=== PATIENT | male | born 1935 | race Caucasian/White ===

== ENCOUNTER 2024-12-04 23:51 | Inpatient (IN) | payer OTHER ==
[~2024-12-04] VITALS: Ht 185.4 cm; Wt 63.7 kg
[2024-12-05] VITALS (57 sets, daily range): BP systolic 74–109; BP diastolic 25–75; PULSE 61–140; RESP 7–33; TEMP 95.1–97.8; O2SAT 77–100
[2024-12-05] MEDS ORDERED: ACETAMINOPHEN 325 MG TAB PO PRN (02:00)
[2024-12-05] MEDS ORDERED: NITROGLYCERIN 0.4 MG SL TAB SL PRN (02:00)
[2024-12-05] MEDS ORDERED: MORPHINE SULFATE INJ 2 MG/ml SYRG IV PRN ×2 (02:00)
[2024-12-05] MEDS ORDERED: ONDANSETRON HCL 4 MG/2 ML VIAL IV PRN (02:00)
[2024-12-05] MEDS ORDERED: SODIUM CHLORIDE 0.9% 1,000 ML IV SCH (02:00)
[2024-12-05] MEDS: methylPREDNISolone SOD SUCC 125 MG/2 ML VL IV ONE (02:15)
[2024-12-05] MEDS ORDERED: VANCOMYCIN PER PHARMACY 0 MG IV SCH (02:15)
[2024-12-05] MEDS: PANTOPRAZOLE 40 MG/10 ML VIAL INJ IV ONE (02:15)
[2024-12-05] MEDS: ATORVASTATIN 20 MG TAB PO ONE (02:30)
--- NOTE | 2024-12-05 02:41 | DVHHPRES ---
History of Present Illness Resident Creating Document: WESLY FIGUEROA RESIDENT History of Present Illness Mr. Florentino, a 89-year-old gentleman with no known past medical history, poor medical follow up, was noted to be losing unintentional weight loss, patient has become confused and agitated, when the neighbors called brother who lives in [facility] visited him and found that he has altered level of consciousness, took the patient to directly to [facility] for further evaluation. Patient mentions he does not take any home medications and did not follow up with the primary care physician in longest time. He is living by himself for last 25 years, and overall in past 6 months has lost 30 lb of w eight, does not have other means of support, limited family support, at this point not able to maintain ADLs by himself, used to move with cane and walker but lately feeling exhausted and overall weak and increasing loss of appetite. But the patient denies any aspiration, sick contact, pain, change in mentation or any fall. Patient was found to have new onset of atrial flutter and possible COPD exacerbation with wheezing and acute hypoxic respiratory failure Complicated with type [address] and chest x-ray was unremarkable and with IV fluid and ceftriaxone, patient is more hemodynamically stable, with AAO x4, post recovery in the ER from [facility] transferred to the [facility] for further care. Patient was admitted in telemetry floor, under the care of Dr. Lawler. Past Medical History Patient denies any known previous medical history. Past Surgical History Patient denies any past significant surgical history, head to toe physical examination does not reveal any surgical scar. Family History: None, Other (Noncontributory, patient does not have a clear memory of family history relevant to this hospitalization.) Smoke: # pack years (Past 30 pack-year smoking history, quit in late 1960s, distant nicotine abuse history.) Occupation: Patient lives at home by him ALCOHOL: none Drugs: None Lives: Alone (Patient has a neighbor who keeps an eye on the patient. Close by family relatives are not very well connected. Closest family member brother lives in [facility].) Domestic Violence: Neg Review of Systems Constitutional: Yes: Weakness, Malaise; No: Fever, Chills, Sweats, Other Eyes: No: Pain, Vision change, Conjunctivae inflammation, Eyelid inflammation, Other, Redness ENT: No: Ear pain, Ear discharge, Nose pain, Nose discharge, Nose congestion, Mouth pain, Mouth swelling, Throat pain, Throat swelling, Other Respiratory: Cough, Dry, SOB with excertion; No: Shortness of breath, Wheezing, Hemoptysis, Pleuritic Pain, Sputum, Wheezing, Other Cardiovascular: No: Chest Pain, Palpitations, Orthopnea, Paroxysmal Noc. Dyspnea, Edema, Lt Headedness, Other Gastrointestinal: Other (Over past 1 year patient feels increasing distress to food, loss of appetite, but denies any abdominal pain, nausea, vomiting, GI bleed or melena.); No: Nausea, Vomiting, Abdominal Pain, Diarrhea, Constipation, Melena, Hematochezia Genitourinary: No Dysuria; Frequency, Incontinence (Recent, although not entirely sure.); No Hematuria, No Retention, No Other Musculoskeletal: No: other, neck pain, shoulder pain, arm pain, back pain, hand pain, leg pain, foot pain Skin: No: Rash, Lesions, Jaundice, Bruising, Other Neurological: Incoordination, Confusion; No: Weakness, Numbness, Change in speech, Seizures, Other Allergies: Coded Allergies: NO KNOWN ALLERGIES (Unverified , 12/05/24) Medications Current Medications Medications Dose Ordered Sig/Juan Pablo Route Start Time Stop Time Status Last Admin Dose Admin Sodium Chloride 1,000 ml @ 60 mls/hr [id number] IV 12/05/24 02:00 UNV Ondansetron HCl 4 mg Q4HP PRN IV 12/05/24 02:00 UNV Acetaminophen 650 mg Q6HP PRN PO 12/05/24 02:00 UNV Morphine Sulfate 2 mg Q4HPRN PRN IV 12/05/24 02:00 UNV Nitroglycerin 0.4 mg Q5MINP PRN SL 12/05/24 02:00 UNV Morphine Sulfate 2 mg Q30M PRN IV 12/05/24 02:00 UNV Vancomycin HCl 0 ml @ 0 mls/hr UD IV 12/05/24 02:15 UNV Cefepime HCl 50 ml @ 12.5 mls/hr Q12HR IV 12/05/24 10:00 UNV Pantoprazole Sodium 40 mg DAILY IV 12/05/24 10:00 UNV Methylprednisolone Sodium Succinate 60 mg Q8HR IV 12/05/24 06:00 UNV Levalbuterol HCl 0.625 mg Q6HWA NEB 12/05/24 06:00 UNV Ipratropium [place] 0.5 mg Q6HWA NEB 12/05/24 06:00 UNV Atorvastatin Calcium 40 mg HS PO 12/05/24 22:00 UNV Exam Vital Signs Vital Signs Date Time Temp Pulse Resp B/P (MAP) Pulse Ox O2 Delivery O2 Flow Rate FiO2 12/05/24 01:30 96.9 63 12 88/67 (74) 78 96.9 General Appearance: Alert, Oriented X3, Cooperative, No acute distress HEENT: Atraumatic, PERRLA, EOMI, Other (Extremely dry mucous membrane, low turgor, bilateral conjunctival pallor, bilateral eye examination reveals favorable vision, status post bilateral cataract surgery.) Respiratory: Other (Bilateral crackles, right more than left, slow air movement, 4-5 L nasal cannula oxygen, likely atelectasis. At baseline patient uses no oxygen.) Cardiovascular: Regular rate, Normal S1, Normal S2, No murmurs, Other (Pulse bilateral regular.) Abdominal: Normal bowel sounds, Soft, No tenderness, No hepatospenomegaly, No masses, Other (No focal tender points noted) Extremities: No clubbing, No cyanosis, No edema, Normal pulses, No tenderness/swelling, Other (Extremely low muscle mass, malnutrition) Skin: No rashes, No significant lesion (At back patient has some scratches on the left scapular region. Lower sacral region mild blanching redness, no skin tear noted. No ulcer noted.) Neuro: Normal speech, Strength at 5/5 X4 ext (Upper and lower extremity equal 4/5 strength no focal neurological deficit), Normal tone, Sensation intact, Cranial nerves 3-12 NL, Reflexes 2+ (Surprisingly patient is AAO x4 with good recall of recent and past major events. Patient could depict the entire narrative coming from home to [place] and to the [facility] without memory lapses), Other (Gait testing deferred) Psych/Mental Status: Mental status NL, Mood NL, Other (Denies homicidal or suicidal ideation, although admits to fatigue) Labs/Xrays Noted labs from [facility], further labs in hospital sent. Although patient has CXR and noncontrast CT head, from recent hospitalization from prior day, after discussion with the Radiology Department not being able to upload. Detailed neurological examination ruled out any focal neurological deficit or memory lapses. Requested for upload to the lining feller in early a.m.. Repeat CXR, EKG noted with PVCs, patient is put on continuous pulse oximeter and telemetry monitoring at least overnight. Assessment/Plan Assessment/Plan # Altered level of consciousness: At presentation likely encephalopathy toxic versus metabolic: Underlying sepsis or uremia can be contributory, CT head was -ve as per [facility], seizure precaution, fall precaution, PT, tomorrow close monitoring of electrolytes and labs, high-risk of delirium, delirium precautions to continue. NPO, aspiration precautions to continue till swallow eval. Check TSH, B12, detailed history for baseline mental state. # Presented with chief complaints of weakness, loss of appetite, fatigue, for past 2 weeks: brought by EMS to the [facility] for further evaluation. avoid benzodiazepines and Beers' criteria eligible drugs. Neurologic close monitoring, Q 2 vitals, delirium precaution, fall precautions to continue: Review CT head, CXR from previous hospitalization. Physical therapy evaluation tomorrow as needed social work support. Nutrition consult and high protein diet cont. # new onset of Atrial flutter: Recheck in the in-hospital EKG, based on available data, chads Vasc of 2. noted in presenting EKG, trend troponin, telemetry, echo, BNP to check. Keep the heart rate around 110, liberal blood pressure and heart rate control. Status post Cardizem, and aspirin loading 325. PVC, no ST-T elevation, if heart rate increases we will consider 25mg metoprolol succinate. Eliquis 2.5 bid started. # Starvation ketosis, likely due to poor p.o. intake, and nutrition: IV fluid replenishment to continue, high-risk of refeeding syndrome check electrolytes and replenish. # possible UTI with leukocyte esterase: Pending urine culture, blood culture, s/p IV ceftriaxone at [place] still hypotensive, hemodynamically unstable, broad antibiotics with both Gram-positive and g negatives coverage. # Sepsis, severe, with lactic acidosis: likely due to underlying UTI, lactate 2.3, repeat lactate, IV fluid to continue, close monitoring for fluid overload state. One set of blood culture and urine culture has been sent from [facility] , keep a map over 65. blood culture, urine culture to recent and follow cover broadly both Gram-positive and g negatives. For hypothermia, warm blanket. # moderate Dehydration: Due to poor oral intake, sepsis, indicative of intravascular fluid depletion, hyaline cast in urinalysis, mucosa dry. IV hydration continue, sepsis dose IV fluids given, recheck lactate. # ?COPD exacerbation: Negative workup for influenza, RSV, COVID less likely viral URI induced. Sputum culture, blood culture to continue, continue treatment with IV steroid and nebs. Ruled out CHF with echo. # acute hypoxic respiratory failure: Patient on 3-4 L of nasal cannula oxygen, baseline does not use any oxygen at home. Denies cardiac chest pain, sick contact dry cough, dyspnea on exertion and exertional chest pain. Workup as above to follow # possible aspiration pneumonia/and/or community-acquired pneumonia with Gram- positive Gram-negative: In the background of extreme dehydration it can not be completely ruled out, interval chest x-ray after adequate hydration to continue, sputum culture pending. # STEPHANE due to VMN: Likely prerenal, IV hydration, avoid nephrotoxic, gentle hydration, trend renal function, U/S renal. # Moderate to severe protein energy malnutrition: Total albumin 2.9,, total protein lower, low muscle mass, advanced age, to rule out underlying malnutrition, advanced age, dementia?. Limited history available at the time of admission. Further history from the caregivers to obtain. 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 avoid nephrotoxins, gentle hydration, check UA, her ultrasound on renal function, look for any postobstructive disease, prostate and urinary retention. # possible hepatic dysfunction: Pending CMP/hepatic panel Mild elevated INR 1.2, Hypoalbuminemia 2.2, RUQ U/S check, physical exam abdominal unremarkable. Check home medications, started on statin hold if altered hepatic function. # acute thrombocytopenia: CBC shows in 80s, no active bleeding noted. Could be due to sepsis, multifactorial, age-related, avoid heparin /heparin containing medications. close follow up, avoid aspirin, NSAIDs, antiplatelets and thrombolytics. Stool occult blood to note check. # History of anxiety: We will try to avoid benzodiazepine containing medications, # unintentional weight loss: As per peripheral history patient has 30 lb of unintentional weight loss over last few months, possible underlying malnutrition, malignancy including GI malignancy/ prostate cancer: Common workup to continue.Overall poor prognosis with multisystem disease and poor [facility] follow up. When patient's kidney functions improve might benefit from a workup with CT chest and abdomen scouting with IV contrast to rule out any malignancy. # CXR revealed bilateral interstitial scars right greater than left possible underlying lung fibrosis: Underlying COPD could be contributory keep the SpO2 around 92%. When patient is more awake alert start incentive spirometry till then aspiration precautions continue. # Occasional PVCs noted in previous hospitalization: Check for magnesium , magnesium more than 2, potassium more than 4. Close monitoring of electrolytes and correction. # hypotension: likely due to severe, status post IV fluid sepsis dose given with NaCL, the patient improved, keep a map over 65. IV steroid, TSH and a.m. cortisol to check. # GI prophylaxis: With IV pantoprazole daily. Look for any GI side effects. Presumably denies any watery diarrhea or high-risk of C diff. patient on broad- spectrum antibiotics abdominal examination unremarkable. # distant history of 30 pack-year smoking: Patient quit in late 1960s. No previously known malignancy history. At home not on oxygen or rescue inhalers. # unable to maintain ADLs: Steep decline over past 6 months. Lives by himself, not able to obtain diet and fluid, declining overall health, advanced age, poor nutrition, unintentional weight loss concerning for undetected malignancy. High-risk of fall and complication at discharge. Patient is not confident about maintaining balance. PT eval pending, sw evaluation for safe and advanced discharge planning. PCP: Did not follow up with PCP in recent times as per patient. Specialist Relevant To Admission: NA, patient can not tell when the last time had any GI workup, colonoscopy etc. lives by himself and extremely poor historian. Case discussed with Dr. Lawler. Code Status: Full Code. Goals of care and care plan discussion needed total 39 minutes bedside. Patient is agreeable to the hospitalization under telemetry floor. Plan discussed with: Patient, Other (discussed over phone with brother. ) My Orders Orders - WESLY FIGUEROA RESIDENT Procedure Category Date Status Time Admit ADMIT 12/05/24 Transmitted 01:48 Allergies KAMALJIT 12/05/24 In Process 01:48 Code Status CODE 12/05/24 Transmitted 01:48 Sodium Chloride 0.9% PHA 12/05/24 Logged 02:00 Oxygen Per Hour RT 12/05/24 Transmitted 01:48 Ondansetron Hcl PHA 12/05/24 Logged (Zofran) 02:00 Fall Risk Precautions KAMALJIT 12/05/[address] 01:48 Complete Blood Count LAB 12/06/24 Verified 04:00 Comprehensive LAB 12/06/24 Verified Metabolic Panel 04:00 Npo (Nothing By DIET 12/05/24 Transmitted Mouth) Diet Breakfast Pt Request For Service PT 12/05/24 Logged 01:48 * Swallow Request ST 12/05/24 Transmitted 01:48 Echo 2d Mode Cardiac US 12/05/24 Logged DOP 01:48 Condition: Serious KAMALJIT 12/05/24 In Process 01:48 Acetaminophen Tablet PHA 12/05/24 Logged (Tylenol Tablet) 02:00 Morphine Sulfate PHA 12/05/24 Logged Injection 02:00 Sequential KAMALJIT 12/05/24 In Process Compression Device Nitroglycerin PHA 12/05/24 Logged Sublingual (Ntrostat 02:00 Morphine Sulfate PHA 12/05/24 Logged Injection 02:00 Oxygen By Nasal RT 12/05/24 Transmitted Cannula 01:48 Stat Ekg For Chest KAMALJIT 12/05/24 In Process Pain 01:48 Notify Of Changes KAMALJIT 12/05/24 In Process From Base 01:48 Kennel Aide For KAMALJIT 12/05/24 In Process 24 Hours 01:48 Emergency Dysrhythmia KAMALJIT 12/05/24 In Process Protocol 01:48 Rhythm Strips Once KAMALJIT 12/05/24 In Process Every Shift 01:48 Vancomycin Per PHA 12/05/24 Logged Pharmacy 02:15 Cefepime 1gm/ 50ml PHA 12/05/24 Logged (Maxipime 1gm/50ml) 10:00 Urine Bacterial LUKE 12/05/24 Uncollected Culture 02:11 Blood Culture LUKE 12/05/24 Uncollected 02:11 Lactic Acid W/ Reflex LAB 12/05/24 Logged Order 02:11 Thyroid Stimulating LAB 12/05/24 Logged Hormone 02:12 Cortisol Am LAB 12/05/24 Logged 02:12 Methylprednisolone PHA 12/05/24 Logged Sod Succ (Solu Medrol 02:15 B-Type Natriuretic LAB 12/05/24 Logged Peptide 02:13 Pantoprazole PHA 12/05/24 Logged (Protonix) 02:15 Pantoprazole PHA 12/05/24 Logged (Protonix) 10:00 Methylprednisolone PHA 12/05/24 Logged Sod Succ (Solu Medrol 06:00 Levalbuterol Hcl PHA 12/05/24 Logged (Xopenex Medneb) 06:00 Ipratropium Medneb PHA 12/05/24 Logged (Atrovent Medneb) 06:00 Respiratory Culture LUKE 12/05/24 Logged W/ Gs 02:18 Strict Aspiration KAMALJIT 12/05/24 In Process Precautions 02:18 Seizure Precautions KAMALJIT 12/05/[address] 02:18 Fall Risk Precautions KAMALJIT 12/05/[address] 02:18 Fall Precautions KAMALJIT 12/05/24 In Process Initiated 02:18 Kidney US 12/05/24 Logged 02:19 Lipase LAB 12/05/24 Logged 02:19 Troponin-I Hs LAB 12/05/24 Logged 02:19 Troponin-I Hs LAB 12/05/24 Logged 03:19 Troponin-I Hs LAB 12/05/24 Logged 05:19 Atorvastatin (Lipitor) PHA 12/05/24 Logged 02:30 Atorvastatin (Lipitor) PHA 12/05/24 Logged 22:00 Communication Order ORDERS 12/05/24 Transmitted 02:22 Comprehensive LAB 12/05/24 Logged Metabolic Panel 04:00 Complete Blood Count LAB 12/05/24 Logged 04:00 Date of Service: Dec 05, 2024 Billing Provider: DUDLEY LAWLER MD Common Visit Codes: 90568-LKAPFKH INP/OBS CARE (HIGH) Secondary Visit Codes: 89958-[id number] CARE PLAN 30 MINUTES WESLY FIGUEROA RESIDENT Dec 05, 2024 02:41
[2024-12-05 03:12] LABS: Basophils # (auto) 0 10 ^3/uL (0-0.2); Basophils % (auto) 0.4 % (0.0-2.0); Eosinophils # (auto) 0 10 ^3/uL (0-0.8); Eosinophils % (auto) 0.4 % (0.0-7.0); Hemoglobin 17.1 g/dL (13.5-17.5); Lymphocytes # (auto) 0.5 10 ^3/uL (0.4-5.4); Lymphocytes % (auto) 9.8 % (10.0-50.0); Mean Corpuscular Hemoglobin 30.2 pg (28.0-32.0); Mean Corpuscular Volume 91.7 fL (80.0-100.0); Monocytes # (auto) 0.3 10 ^3/uL (0-1.3); Monocytes % (auto) 6.2 % (0.0-12.0); Neutrophils # (auto) 4.6 10 ^3/uL (1.6-8.6); Neutrophils % (auto) 83.2 % (37.0-80.0); Nucleated Red Blood Cells % 0.2 %; Platelet Count (auto) 110 10^3/uL (140-450); Red Blood Cells 5.67 10^6/uL (4.5-5.90); Red Cell Distribution Width 19.4 % (11.8-14.3); White Blood Cell 5.5 10^3/uL (4.4-10.8)
[2024-12-05 03:27] LABS: Albumin 3.7 g/dL (3.2-4.8); Anion Gap 16 (5-15); BUN/Creatinine Ratio 24.1 (10.0-20.0); Calcium 8.9 mg/dL (8.7-10.4); Glucose 76 mg/dL (74-106); Lipase 39 U/L (12-53); Potassium 4.7 mmol/L (3.5-5.1); Sodium 143 mmol/L (136-145); Total Protein 6.4 g/dL (5.7-8.2)
[2024-12-05] MEDS: VANCOMYCIN 1.5GM/300ML 300 ML IV ONE ×2 (03:42→11:16)
[2024-12-05 03:48] LABS: Lactic Acid w/Reflex 3.2 mmol/L (0.4-2.0)
[2024-12-05] MEDS: SODIUM CHLORIDE 0.9% 1,000 ML IV SCH (03:53)
[2024-12-05 03:55] LABS: Alanine Aminotransferase 43 U/L (7-40); Alkaline Phosphatase 116 U/L (46-116); Aspartate Aminotransferase 72 U/L (<34); Bilirubin, Total 2.4 mg/dL (0.2-1.0); Blood Urea Nitrogen 42 mg/dL (9-23); Carbon Dioxide 19 mmol/L (20-31); Chloride 108 mmol/L (98-107)
[2024-12-05] MEDS: methylPREDNISolone SOD SUCC 125 MG/2 ML VL IV SCH (05:06)
--- NOTE | 2024-12-05 06:37 | DVH ---
EXAM: XR Chest, 1 View CLINICAL INDICATION: Rule out pneumonia after rehydration TECHNIQUE: Frontal view of the chest. COMPARISON: No relevant prior studies available. FINDINGS: LUNGS AND PLEURAL SPACES: See below. HEART: Cardiomegaly with mild congestion. MEDIASTINUM: Unremarkable. Normal mediastinal contour. BONES/JOINTS: Unremarkable. No acute fracture. OTHER FINDINGS: Comparison None. . . IMPRESSION: Cardiomegaly with mild congestion. HS:Y
[2024-12-05] MEDS: LEVALBUTEROL HCL 1.25 MG/3 ML NEB NEB SCH (06:59)
[2024-12-05] MEDS: IPRATROPIUM BROM 0.5 MG/2.5ML INH SOL NEB SCH (06:59)
[2024-12-05] MEDS ORDERED: FUROSEMIDE 20 MG/2 ML VIAL IV ONE (07:45)
[2024-12-05 08:24] LABS: Free T3 2.14 pg/mL (2.3-4.2); Free T4 (Free Thyroxine) 1.9 ng/dL (0.89-1.76)
[2024-12-05] MEDS: PANTOPRAZOLE 40 MG/10 ML VIAL INJ IV SCH (09:02)
[2024-12-05] MEDS: CEFEPIME 1GM/ 50ML 50 ML IV SCH (09:02)
[2024-12-05] MEDS: APIXABAN 2.5 MG TAB PO SCH (09:02)
[2024-12-05] MEDS: Ensure HIGH Protein Chocolate 8oz Bottle PO SCH (09:17)
--- NOTE | 2024-12-05 09:30 | DVH ---
Bilateral lower extremity venous duplex Clinical History: Immobility, noted leg swelling. Comparison: None Technique: Duplex Doppler evaluation of the deep venous systems of both lower extremities from the common femora l veins to the popliteal veins including color Doppler and spectral/pulsed waveform analysis was perf ormed. Findings: RIGHT SIDE: The common femoral vein demonstrates appropriate compressibility and waveform variability. There is compressibility/patency of the great saphenous vein at the proximal thigh. The femoral vein demonstrates appropriate compressibility and waveform variability. The deep femoral vein demonstrates appropriate compressibility and waveform variability. The popliteal vein demonstrates appropriate compressibility and waveform variability. There is normal compressibility at the tibioperoneal trunk. LEFT SIDE: The common femoral vein demonstrates appropriate compressibility and waveform variability. There is compressibility/patency of the great saphenous vein at the proximal thigh. Chronic dvt left SFV The deep femoral vein demonstrates appropriate compressibility and waveform variability. The popliteal vein demonstrates appropriate compressibility and waveform variability. There is normal compressibility at the tibioperoneal trunk. Impression: No right femoropopliteal venous thrombosis. Chronic dvt left SFV, popliteal vein, posterior tibial vein
--- NOTE | 2024-12-05 09:30 | DVH ---
INDICATION: Rule out obstruction. Ureter, bladder and b/l kidney TECHNIQUE: Multiple real-time sonographic images of the kidneys and bladder were obtained. COMPARISON: None FINDINGS: The right kidney measures 8 cm in length, which is normal in size. There is normal echogeni [place] of the right kidney. No hydronephrosis. The left kidney measures 9 cm in length, which is normal in size. There is normal echogenicity of the left kidney. No hydronephrosis. No large intraluminal masses are seen in the bladder. 5 cm right renal cyst. IMPRESSION: 1. Normal sonographic appearance of the kidneys. No hydronephrosis. 2. Small bilateral pleural effusions.
[2024-12-05] MEDS ORDERED: SODIUM CHLORIDE 0.9% 2,400 ML IV ONE (09:45)
--- NOTE | 2024-12-05 09:53 | DVH ---
INDICATION: Rule out hepatobiliary pathology TECHNIQUE: Multiple real-time sonographic images were obtained of the right upper quadrant. COMPARISON: None FINDINGS: The liver demonstrates increased echotexture without focal mass lesions. The liver measure s 12.5 cm. There is no intrahepatic or extrahepatic ductal dilatation. The common duct measures 0.3 cm. Gallbladder sludge is present. The gallbladder wall measures 0.3 cm and is within normal limits. Trac e pericholecystic fluid. Trace perihepatic ascites. The right kidney measures 8.0 cm. The right kidney is normal in contour, size, and shape. The echogen icity is normal. There is no hydronephrosis. Right upper pole cyst measures 4.2 cm. The pancreas is not well visualized due to overlying bowel gas. Small to moderate right pleural effusion. IMPRESSION: Small to moderate right pleural effusion. Trace perihepatic and trace pericholecystic fluid. Gallbladder sludge is present. Mild increased echogenicity of the liver may represent hepatic steatosis.
[2024-12-05] MEDS ORDERED: ASPirin 81 mg TAB PO SCH (10:00)
[2024-12-05] MEDS ORDERED: NOREPINEPHRINE 8 MG/250ML KIT 250 ML IV SCH (10:15)
[2024-12-05] MEDS: SODIUM CHLORIDE 0.9% 1,000 ML IV ONE (10:17)
[2024-12-05 11:07] LABS: Base Excess -10.1 mmol/L (-2.0-3.0)
--- NOTE | 2024-12-05 11:18 | DVHINCON2 ---
Date Seen: Dec 05, 2024 Referring Physician MD Johnathon Reason for Consultation Cardiogenic shock History of Present Illness This is an 89-year-old man transferred to our facility for continuation of care from [facility] for a chief complain of generalized weakness for two weeks. According to medical records from aforementioned facility the patient presented via EMS with a chief complaint of progressive generalized weakness associated with fatigue, decreased appetite, shortness of breath, and weight loss including >30 lbs. It appears his brother came to visit and found him not be heaviness his normal self prompting him to call 911. Upon EMS arrival he was noted to be A&O x4 and hypotensive with a blood pressure of 68/28 mmHg for which he was administered NS x 1L bolus with improved BP of 91/71 mmHg. He underwent a 12 lead electrocardiogram revealing an atrial tachycardia rhythm at 127 bpm with a associated PVCs. Records indicate the patient was also found with paroxysmal atrial fibrillation/atrial flutter with rapid ventricular rate and occasional PVCs. He underwent blood work an emergent testing revealing acute kidney injury, thrombocytopenia, pulmonary congestion, and negative influenza A&B/COVID-19. Per patient, he has not seen a PCP in many years. Significant medical history includes anxiety and remote history of tobacco use including 30 pack-years. Past Medical History Past medical history reviewed. No other significant than mentioned above. Past Surgical History Past surgical history reviewed. No other significant than mentioned above. Family History: FH: stomach cancer G8 MOTHER, Family History Family history reviewed. Social History Denies the use of illicit drugs, alcohol, or tobacco use. Admits to remote history of tobacco use including 30 pack-years. Allergies: Coded Allergies: NO KNOWN ALLERGIES (Unverified , 12/05/24) Home Meds No Active Prescriptions or Reported Meds Home Meds There are no active home medications. Current Medications Air Current Medications Medications (Trade) Dose Ordered Sig/Juan Pablo Route PRN Reason Start Time Stop Time Status Last Admin Sodium Chloride 1,000 ml @ 60 mls/hr [id number] IV 12/05/24 02:00 12/05/24 03:37 DC Ondansetron HCl (Zofran) 4 mg Q4HP PRN IV NAUSEA / VOMITING 12/05/24 02:00 12/05/24 09:00 DC Acetaminophen (Tylenol Tablet) 650 mg Q6HP PRN PO PAIN SCALE 1-3 OR TEMP>100.4 12/05/24 02:00 12/05/24 07:39 DC Morphine Sulfate 2 mg Q4HPRN PRN IV SEVERE PAIN (7-10 PAIN SCALE) 12/05/24 02:00 12/05/24 09:00 DC Nitroglycerin (Ntrostat Sublingual) 0.4 mg Q5MINP PRN SL FOR CHEST PAIN 12/05/24 02:00 12/05/24 09:00 DC Morphine Sulfate 2 mg Q30M PRN IV FOR CHEST PAIN 12/05/24 02:00 12/05/24 09:00 DC Vancomycin HCl 0 ml @ 0 mls/hr UD IV 12/05/24 02:15 Cefepime HCl 50 ml @ 12.5 mls/hr Q12HR IV 12/05/24 10:00 12/05/24 09:02 Pantoprazole Sodium (Protonix) 40 mg DAILY IV 12/05/24 10:00 12/05/24 09:02 Methylprednisolone Sodium Succinate (Solu Medrol) 60 mg Q8HR IV 12/05/24 06:00 12/05/24 05:06 Levalbuterol HCl (Xopenex Medneb) 0.625 mg Q6HWA [facility] 12/05/24 06:00 12/05/24 06:59 Ipratropium [place] (Atrovent Medneb) 0.5 mg Q6HWA [facility] 12/05/24 06:00 12/05/24 06:59 Atorvastatin Calcium (Lipitor) 40 mg HS PO 12/05/24 22:00 Sodium Chloride 1,000 ml @ 75 mls/hr [id number] IV 12/05/24 03:45 12/05/24 07:31 DC 12/05/24 03:53 Enteral Nutritional Formula (Ensure High Protein) 240 ml TIDWM PO 12/05/24 08:00 12/05/24 09:17 Apixaban (Eliquis) 2.5 mg BID PO 12/05/24 10:00 12/05/24 09:02 Aspirin 81 mg DAILY PO 12/05/24 10:00 12/05/24 09:00 DC Norepinephrine Bitartrate 250 ml @ 3.75 mls/hr Q24H IV 12/05/24 10:15 12/05/24 10:59 DC Norepinephrine Bitartrate 250 ml @ 3.75 mls/hr Q24H IV 12/05/24 10:45 Dobutamine HCl/ Dextrose 250 ml @ 19.8 mls/hr [id number] IV 12/05/24 10:45 Review of Systems Constitutional: Generalized weakness, fatigue, weight loss, decreased appetite Ears, Nose, & Throat: No symptom reported Eyes: No symptom reported Neurological: No symptoms reported Pulmonary/Respiratory: SOB Cardiovascular: No symptom reported Gastrointestinal: No symptom reported Genitourinary: No symptom reported Musculoskeletal: No symptom reported Skin: No symptom reported Psychiatric: No symptom reported Endocrine: No symptom reported Hemotologic/Lymphatic: No symptom reported Vital Signs Vital Signs Date Time Temp Pulse Resp B/P (MAP) Pulse Ox O2 Delivery O2 Flow Rate FiO2 12/05/24 08:09 Nasal Cannula* 5 40 12/05/24 07:00 61 14 97 12/05/24 05:07 95.1 74/42 (53) 95.1 Physical Exam General Appearance: Cooperative. Lethargic. Elder. [id number] respiratory acute distress Head Exam: Normal inspection Neck Exam: Normal inspection. Non-tender. Normal alignment Pulmonary/Respiratory: Chest non-tender. Crackles to bilateral breath sounds Cardiovascular/Chest: Regular rate and rhythm. S1, S2. Paroxysmal Aflutter/AFib. No murmurs. + JVD. Peripheral Pulses: 2+ Radial (R). 2+ Radial (L). 1+ Pedal (R). 1+ Pedal (L) Abdominal Exam: Normal bowel sounds. Soft. Nontender. No hepatospenomegaly. No masses Ankle Exam: Negative ankle edema Lower extremities: Negative lower extremity edema Neuro/Mental Status: A&O x3. Coherent Thoughts/Psych: Normal thought pattern. Appropriate mood and affect. Appearance: In no acute distress Skin Exam: Normal inspection. Pale color. Warm. Dry Labs/Diagnostic Data Labs Test 12/05/24 11:00 12/05/24 08:24 12/05/24 05:44 12/05/24 02:38 Range/Units Blood Gas Specimen Type Arterial Blood Gas Sample Site Left radial Blood Gas Patient Temperature 37.0 Arterial Blood Date Drawn [id number] Arterial Blood pH 7.405 7.350-7.450 Arterial Blood Partial Pressure CO2 18.6 *L 35.0-48.0 mmHg Arterial Blood Partial Pressure O2 135.9 H 83.0-108.0 mmHg Arterial Blood HCO3 11.4 L 21.0-28.0 mmol/L Arterial Blood Oxygen Saturation 98.5 H 94.0-98.0 % Arterial Blood Base Excess -10.1 L -2.0-3.0 mmol/L Arterial Blood Oxyhemoglobin 97.7 94.0-98.0 % Arterial Blood Carboxyhemoglobin 0.3 L 0.5-1.5 % Arterial Blood Methemoglobin 0.5 0.0-1.5 % Ramos Test Yes Blood Gas Total Hemoglobin 16.80 13.5-17.5 g/dL Blood Gas Liter Flow 5.00 Blood Gas Modality Nasal cannula FiO2 % 40.0 Blood Gas Critical Value Read Back Yes Blood Gas Notified Whom ema Gallego Blood Gas Notified Time [id number] Blood Gas Notified By mary Melton Lactic Acid Level 3.3 *H 0.4-2.0 mmol/L Cortisol AM Sample 67.17 H 5.27-22.45 ug/dL Troponin I High Sensitivity 69 *H </=54 ng/L White Blood Count 5.5 4.4-10.8 10^3/uL Red Blood Count 5.67 4.5-5.90 10^6/uL Hemoglobin 17.1 13.5-17.5 g/dL Hematocrit 52.0 41.0-53.0 % Mean Corpuscular Volume 91.7 80.0-100.0 fL Mean Corpuscular Hemoglobin 30.2 28.0-32.0 pg Mean Corpuscular Hemoglobin Concent 33.0 32.0-36.0 g/dL Red Cell Distribution Width 19.4 H 11.8-14.3 % Platelet Count 110 L 140-450 10^3/uL Mean Platelet Volume 10.1 6.9-10.8 fL Neutrophils (%) (Auto) 83.2 H 37.0-80.0 % Lymphocytes (%) (Auto) 9.8 L 10.0-50.0 % Monocytes (%) (Auto) 6.2 0.0-12.0 % Eosinophils (%) (Auto) 0.4 0.0-7.0 % Basophils (%) (Auto) 0.4 0.0-2.0 % Neutrophils # (Auto) 4.6 1.6-8.6 10 ^3/uL Lymphocytes # (Auto) 0.5 0.4-5.4 10 ^3/uL Monocytes # (Auto) 0.3 0-1.3 10 ^3/uL Eosinophils # (Auto) 0 0-0.8 10 ^3/uL Basophils # (Auto) 0 0-0.2 10 ^3/uL Nucleated Red Blood Cells 0.2 % D-Dimer, Quantitative 4.87 H 0.0-0.49 mg/L FEU Sodium Level 143 136-145 mmol/L Potassium Level 4.7 3.5-5.1 mmol/L Chloride Level 108 H 98-107 mmol/L Carbon Dioxide Level 19 L 20-31 mmol/L Anion Gap 16 H 5-15 Blood Urea Nitrogen 42 H 9-23 mg/dL Creatinine 1.74 H 0.700-1.30 mg/dL Glomerular Filtration Rate Calc 37 >90 mL/min BUN/Creatinine Ratio 24.1 H 10.0-20.0 Serum Glucose 76 74-106 mg/dL Calcium Level 8.9 8.7-10.4 mg/dL Total Bilirubin 2.4 H 0.2-1.0 mg/dL Aspartate Amino Transferase (AST) 72 H <34 U/L Alanine Aminotransferase (ALT) 43 H 7-40 U/L Alkaline Phosphatase 116 46-116 U/L B-Type Natriuretic Peptide 2261.63 0-100 pg/mL Total Protein 6.4 5.7-8.2 g/dL Albumin 3.7 3.2-4.8 g/dL Lipase 39 12-53 U/L Vitamin B12 Level 1562 H 211-911 pg/mL Thyroid Stimulating Hormone (TSH) 8.35 H 0.55-4.78 uIU/mL Free Thyroxine (T4) Calculated 1.90 H 0.89-1.76 ng/dL Free Triiodothyronine (T3) pg/mL 2.14 L 2.3-4.2 pg/mL Assessment NSTEMI with cardiogenic shock (SCAI Shock Stage C) 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 Ramirez): * Transthoracic echocardiogram to evaluate cardiac function * Initiate milrinone drip for inotropic support and load on digoxin therapy * Initiate antiarrhythmic therapy, amiodarone drip per pharmacy protocol * Therapeutic Lovenox QD given borderline thrombocytopenia * [id number] Score 6 points. HAS-BLED Score 1 point * Preload reduction as tolerated, monitor renal function closely * Strict I&Os. Daily weight. Fluid restrictions * Monitor ECG changes closely and notify * Continuous CVP monitoring Case discussed in full detail with Dr. Ramirez. In the setting of deteriorating status the patient may qualify for a percutaneous ventricular assist device. Not a candidate for a cardiac catheterization at this time given clinical instability. Notify cardiology of any acute changes on clinical status. We will continue to monitor closely. Thank you for allowing us to participate in this patient's care. Please call if you have any questions or concerns. Critical care time: 60 min. This medical document was created using an electronic medical record system with voice recognition software and computerized dictation system. Although this document has been carefully reviewed, there might still be some phonetic and typographical errors. Occasional wrong-word or ``sound-alike substitutions may have occurred due to the inherent limitations of voice recognition software. These areas are purely typographical due to imperfections of the software programs and do not reflect any compromise in the patient's medical care. Please read the chart carefully and recognize, using context, where these substitutions have occurred. Plan discussed with: Patient, Other NYHA Physical activity limitations: Class4(Severe)discomfort (w any activit,symptoms at rest) Date of Service: Dec 05, 2024 Billing Provider: GEOVANNI MIRZA Cardiology Common Codes: 17360-TADBMTQT CARE 30-74 MIN GEOVANNI MIRZA Dec 05, 2024 11:18
[2024-12-05] MEDS: DOBUTamine 1000MCG/ML 250 ML IV SCH (11:44)
--- NOTE | 2024-12-05 12:15 | DVH ---
EXAM: XY CHEST PORTABLE Indication: central line placement Technique: Single frontal view of the chest was obtained Comparison: XY CHEST PORTABLE on DOS: 12/05/24 FINDINGS: Lines and Tubes: Right internal jugular central venous catheter tip projects over the superior vena c grant.. Lungs: Bilateral interstitial opacities. Pleura: Trace bilateral pleural effusions No pneumothorax. Cardiomediastinal contours: Cardiomegaly Bones: No acute osseous abnormality. IMPRESSION: Cardiomegaly with pulmonary edema and trace bilateral pleural effusions. Right internal jugular centr al venous catheter in appropriate position.
[2024-12-05] MEDS: NOREPINEPHRINE 8 MG/250ML KIT 250 ML IV SCH (12:37)
[2024-12-05] MEDS: FUROSEMIDE 100 MG/10ML VIAL IV ONE (12:48)
[2024-12-05] MEDS: AMIODARONE BOLUS KIT 100 ML IV ONE (12:49)
[2024-12-05 13:01] LABS: Magnesium 2.3 mg/dL (1.6-2.6)
[2024-12-05] MEDS: AMIODARONE 360mg/200mL PREMIX 200 ML IV ONE (13:01)
--- NOTE | 2024-12-05 13:13 | DVHPNRES ---
Progress Note Date Seen: Dec 05, 2024 Resident Creating Document: TOBIAS FREIRE RESIDENT Has the PT tested + for MRSA If YES, has PT been informed?: No Medical Necessity Reason Pt with a Central, PICC or Fol: No Subjective Review of Systems Mr. Florentino, a 89-year-old gentleman with no known past medical history, poor medical follow up, was noted to be losing unintentional weight loss, patient has become confused and agitated, when the neighbors called brother who lives in [facility] visited him and found that he has altered level of consciousness, took the patient to directly to [facility] for further evaluation. Patient mentions he does not take any home medications and did not follow up with the primary care physician in longest time. He is living by himself for last 25 years, and overall in past 6 months has lost 30 lb of weight, does not have other means of support, limited family support, at this point not able to maintain ADLs by himself, used to move with cane and walker but lately feeling exhausted and overall weak and increasing loss of appetite. But the patient denies any aspiration, sick contact, pain, change in mentation or any fall. Patient was found to have new onset of atrial flutter and possible COPD exacerbation with wheezing and acute hypoxic respiratory failure, with AAO x4, post recovery in the ER from [facility] transferred to the [facility] for further care. Patient was admitted in telemetry floor, Past Medical History Patient denies any known previous medical history. Past Surgical History Patient denies any past significant surgical history, head to toe physical examination does not reveal any surgical scar. Family History: None, Other (Noncontributory, patient does not have a clear memory of family history relevant to this hospitalization.) Smoke: # pack years (Past 30 pack-year smoking history, quit in late 1960s, distant nicotine abuse history.) Occupation: Patient lives at home by him ALCOHOL: none Drugs: None Lives: Alone (Patient has a neighbor who keeps an eye on the patient. Close by family relatives are not very well connected. Closest family member brother lives in [facility].) Domestic Violence: Neg 12/05/2024: xray : Cardiomegaly with pulmonary edema and trace bilateral pleural effusions, Chronic dvt left SFV, popliteal vein, posterior tibial vein, BP on the floor 80/60, leg raise test with no improvement, HR elevated with atrial flutter, 250 cc were given, but due to the possible concern of mixed shock (septic and cardiogenic), patient was transferred to ICU, CVC was placed. Patient is on cefepime + vancomycin, apixaban 2.5 mg BID and amiodarone drip. ABG: mixed disorder: metabolic acidosis and respiratory alkalosis, po2 is normal. We will continue monitoring Objective vital signs Vital Sign Date Time Temp Pulse Resp B/P (MAP) Pulse Ox O2 Delivery O2 Flow Rate FiO2 12/05/24 12:48 114/54 12/05/24 12:00 125 20 99 12/05/24 08:09 Nasal Cannula* 5 40 12/05/24 05:07 95.1 95.1 Total Intake and Output 12/04/24 12/04/24 12/05/24 15:00 23:00 07:00 Intake Total 400 ml Balance 400 ml medications Current Medications Medications Dose Ordered Sig/Juan Pablo Route Start Time Stop Time Status Last Admin Dose Admin Vancomycin HCl 0 ml @ 0 mls/hr UD IV 12/05/24 02:15 Cefepime HCl 50 ml @ 12.5 mls/hr Q12HR IV 12/05/24 10:00 12/05/24 09:02 12.5 MLS/HR Pantoprazole Sodium 40 mg DAILY IV 12/05/24 10:00 12/05/24 09:02 40 MG Methylprednisolone Sodium Succinate 60 mg Q8HR IV 12/05/24 06:00 12/05/24 05:06 60 MG Ipratropium [place] 0.5 mg Q6HWA [facility] 12/05/24 06:00 12/05/24 06:59 0.5 MG Atorvastatin Calcium 40 mg HS PO 12/05/24 22:00 Enteral Nutritional Formula 240 ml TIDWM PO 12/05/24 08:00 12/05/24 09:17 240 ML Apixaban 2.5 mg BID PO 12/05/24 10:00 12/05/24 09:02 2.5 MG Norepinephrine Bitartrate 250 ml @ 3.75 mls/hr Q24H IV 12/05/24 10:45 Dobutamine HCl/ Dextrose 250 ml @ 19.8 mls/hr [id number] IV 12/05/24 10:45 Examination General Appearance: Alert, Oriented X3, Cooperative, No acute distress HEENT: Extremely dry mucous membrane, low turgor, bilateral conjunctival pallor, Respiratory: Bilateral crackles, right more than left, slow air movement, 4-5 L nasal cannula oxygen, likely atelectasis. At baseline patient uses no oxygen. Cardiovascular: tachycardic Abdominal: Normal bowel sounds, Soft, No tenderness, No hepatospenomegaly, No masses, Other (No focal tender points noted) Extremities: No clubbing, No cyanosis, No edema, Normal pulses, No tenderness/swelling, Other (Extremely low muscle mass, malnutrition) Skin: (At back patient has some scratches on the left scapular region. Lower sacral region mild blanching redness, no skin tear noted. No ulcer noted. Neuro: Normal speech, Strength at 5/5 X4 ext (Upper and lower extremity equal 4/5 strength no focal neurological deficit), Normal tone, Sensation intact, Cranial nerves 3-12 NL, Reflexes 2+ (patient is AAO x4 with good recall of recent and past major events. Patient could depict the entire narrative coming from home to [place] and to the [facility] without memory lapses) Psych/Mental Status: Mental status NL, Mood NL laboratory and microbiology Laboratory Tests 12/05/24 02:38 Test 12/05/24 02:38 Range/Units Serum Glucose 76 74-106 mg/dL Problem List/Assessment/Plan Problem List/Assessment/Plan Neurological #Acute metabolic encephalopathy due to sepsis/cardiogenic shock resolving No need of ETT Patient is A04X Cardiovascular #Early Cardiogenic/ septic shock #Acute systolic heart failure #NSTEMI? #Atrial flutter with RVR MAP> 65 Start levophed to keep MAP goal Amiodarone drip Furosemide 80 mg given Pending ECHO report Please monitor CVP Initiate milrinone drip for inotropic support and load on digoxin therapy Respiratory #Acute respiratory failure #COPD exacerbation #Possible pneumonia gram +/ gram - O2 5 lt Vanco + cefepime Solumedrol 40 mg BID GI #Failure to thrive #Protein malnutrition Started on protein supplementation Renal #STEPHANE due to VMN on possible CKD #Possible complicated UTI #hematuria Fluids given Cefepime Insert ibarra strict i&os Heme #Chronic DVT anticoagulation held due to hematuria #Thrombocytopenia #Hyperbilirubinemia #Fatty liver monitor Endocrinology Euthyroid sick syndrome monitor Case discussed with Dr Diego Modified code: no compressions, no defibrillation, yes ACLS meds and intubation Case discussed extensively with the brother Plan discussed with: Patient, Other My Orders My Orders Orders - TOBIAS FREIRE RESIDENT Procedure Category Date Status Time Communication Order ORDERS 12/05/24 Transmitted 09:01 Code Status CODE 12/05/24 Transmitted 09:39 PTPTT LAB 12/05/24 Logged 10:16 Abg W/ Co-Ox RT 12/05/24 Logged 11:04 Chest Portable XY 12/05/24 Resulted 11:43 Cvp Monitoring ED NURSING 12/05/24 Transmitted Continuous Monitoring KAMALJIT 12/05/24 In Process Of Cvp,P 13:11 Central Line W/ Cont ORDERS 12/05/24 Transmitted CVP 13:11 Complete Blood Count LAB 12/05/24 Verified 13:12 Comprehensive LAB 12/05/24 Verified Metabolic Panel 13:12 Date of Service: Dec 05, 2024 Billing Provider: GRISELDA DIEGO MD Common Visit Codes: [id number] INP/OBS CARE(HIGH) TOBIAS FREIRE RESIDENT Dec 05, 2024 13:13 GRISELDA DIEGO MD Dec 11, 2024 21:28
[2024-12-05 13:32] LABS: Hematocrit 47.3 % (41.0-53.0); Hemoglobin 15.5 g/dL (13.5-17.5); Mean Corpuscular Hemoglobin 30.5 pg (28.0-32.0); Mean Corpuscular Hgb Conc. 32.8 g/dL (32.0-36.0); Mean Corpuscular Volume 92.9 fL (80.0-100.0); Platelet Count (auto) 102 10^3/uL (140-450); Red Blood Cells 5.09 10^6/uL (4.5-5.90); Red Cell Distribution Width 19.6 % (11.8-14.3); White Blood Cell 5.2 10^3/uL (4.4-10.8)
[2024-12-05 13:36] LABS: Basophils % (manual) 0 (0.0-2.0); Blast Cells 0; Eosinophils % (manual) 0 (0-7); Metamyelocytes % 0; Myelocytes % 0; Promyelocytes % 0; Reactive Lymphocytes 0
[2024-12-05 13:49] LABS: Alanine Aminotransferase 33 U/L (7-40); Alkaline Phosphatase 95 U/L (46-116); Anion Gap 18 (5-15); BUN/Creatinine Ratio 32.7 (10.0-20.0); Calcium 8.9 mg/dL (8.7-10.4); Potassium 4.7 mmol/L (3.5-5.1); Sodium 144 mmol/L (136-145)
[2024-12-05 13:50] LABS: Albumin 3.3 g/dL (3.2-4.8); INR 1.36 (0.9-1.15); Partial Thromboplastin Time 32.8 SEC (24.5-34.5)
[2024-12-05 13:52] LABS: Carbon Dioxide 17 mmol/L (20-31); Chloride 109 mmol/L (98-107); Glucose 143 mg/dL (74-106)
[2024-12-05 13:53] LABS: Aspartate Aminotransferase 42 U/L (<34); Bilirubin, Total 1.9 mg/dL (0.2-1.0); Blood Urea Nitrogen 56 mg/dL (9-23); Total Protein 5.4 g/dL (5.7-8.2)
--- NOTE | 2024-12-05 14:57 | ECG ---
[facility] Test Date: 2024-12-05 Test Time: 02:10:47 Pat Name: BEN KUHN Department: Respiratoy Room: [address] [place] [address] A Gender: M Api Developer: JUANA Crook : 1935 Requested By: TOBIAS WEISS Order Number: [id number] Reading MD: Octavio Garcia Measurements Intervals [place] Rate: 125 P: 237 MT: 80 QRS: 51 QRSD: 99 T: 107 QT: 388 QTc: 560 Interpretive Statements Sinus or ectopic atrial tachycardia Low voltage, extremity leads Nonspecific T abnormalities, lateral leads Prolonged QT interval Electronically Signed On 12-05-2024 22:20:03 PDT by Octavio Garcia Please click the below link to view image of tracing.
--- NOTE | 2024-12-05 14:57 | ECG ---
[facility] Test Date: 2024-12-05 Test Time: 02:09:25 Pat Name: BEN KUHN Department: Respiratoy Room: [address] [place] [address] A Gender: M Transit Planning Director: JUANA Crook : 1935 Requested By: TOBIAS WEISS Order Number: [id number] Reading MD: Octavio Garcia Measurements Intervals [place] Rate: 125 P: -51 SC: 66 QRS: 50 QRSD: 90 T: 206 QT: 354 QTc: 511 Interpretive Statements Sinus or ectopic atrial tachycardia Ventricular premature complex Low voltage, extremity leads Nonspecific T abnormalities, lateral leads Prolonged QT interval Electronically Signed On 12-05-2024 22:19:57 PDT by Octavio Garcia Please click the below link to view image of tracing.
[2024-12-05 15:17] LABS: Band Neutrophils % (manual) 2; Lymphocytes % (manual) 4 (10.0-50.0); Monocytes % (manual) 2 (0-12); Platelet Estimate Decreased
[2024-12-05 15:18] LABS: Anisocytosis Slight; Ovalocytes FEW
[2024-12-05] MEDS: DIGOXIN (250MCG/ML) 2 ML AMPULE IV ONE (15:21)
[2024-12-05] MEDS: MILRINONE 20MG/100ML 100 ML IV SCH (15:32)
[2024-12-05] MEDS: AMIODARONE 360mg/200mL PREMIX 200 ML IV SCH (18:12)
[2024-12-05] MEDS ORDERED: ENOXAPARIN SOD 80 MG/0.8ML SYRINGE SC SCH (22:00)
[2024-12-05] MEDS: ATORVASTATIN 20 MG TAB PO SCH (22:01)
[2024-12-05] MEDS: methylPREDNISolone SOD SUCC 40 MG/ML VL IV SCH (22:01)
--- NOTE | 2024-12-05 23:17 | DVHSR ---
APPROVED REPORT EXAM: Two-dimensional and M-mode echocardiogram with Doppler and color Doppler. Blood Pressure: 74/42 mmHg INDICATION R/O structural heart disease RISK FACTORS Height: 6'1", Weight: 145 DIMENSIONS LVDd6.1 (3.8-5.7cm)LA (2D)5.2 (1.9-4.0cm)Aortic Root3.5 (2.0-3.7cm) LVDs5.7 (2.5-4.0cm)LA (MM) (1.9-4.0cm)Aortic Cusp Exc1.6 (1.5-2.0cm) EF (%) 15.0 (55-70%)Rt. Atrium5.0 (1.9-4.0cm)Asc. Aorta cm IVSd0.8 (0.7-1.1cm)RV (D)4.6 (1.8-2.4cm) PWd1.0 (0.7-1.1cm) Mitral Valve MitralMitral Stenosis E wave1.12m/sMV Mean GR.mmHg E/A ratio0.02D MVAcm2 Aortic Valve Aortic ValveAortic Stenosis V10.58m/Rekha Mean GR.2mmHg V20.90m/Rekha Peak GR.3mmHg LVOT Diameter2.3 (1.8-2.4cm)Doppler AVA2.68cm2 2D AVA2.84cm2 Pulmonic Valve V20.59m/s Tricuspid Valve TR Velocity2.71m/s [id number] Conclusion SIGNIFICANTLY DILATED LV SEVERE HYPOKINESIS OF LV DILATED ALL CARDIAC CHAMBERS LV EF IS ONLY 15% ANTERIOR MITRAL LEAFLET TIP IS ECHOGENIC CORRELATE CLINICALLY IF ANY SUSPICIOUS OF PREVIOUS ENDOCARDITIS SEVERE MITRAL REGURGITATION SIGNIFICANTLY DILATED LA AND RV AND RA NORMAL TV,PV AND AORTIC VALVE MODERATE DEGREE PULMONARY HYPERTENSION
[2024-12-06] VITALS (40 sets, daily range): BP systolic 72–111; BP diastolic 38–66; PULSE 53–139; RESP 12–20; TEMP 97.4–98; O2SAT 84–99
[2024-12-06 03:37] LABS: Basophils # (auto) 0 10 ^3/uL (0-0.2); Basophils % (auto) 0.1 % (0.0-2.0); Eosinophils # (auto) 0 10 ^3/uL (0-0.8); Hematocrit 44.3 % (41.0-53.0); Hemoglobin 14.7 g/dL (13.5-17.5); Lymphocytes # (auto) 0.4 10 ^3/uL (0.4-5.4); Mean Corpuscular Hemoglobin 30.7 pg (28.0-32.0); Mean Corpuscular Hgb Conc. 33.3 g/dL (32.0-36.0); Mean Corpuscular Volume 92.1 fL (80.0-100.0); Monocytes # (auto) 0.8 10 ^3/uL (0-1.3); Monocytes % (auto) 8.2 % (0.0-12.0); Neutrophils # (auto) 8.2 10 ^3/uL (1.6-8.6); Neutrophils % (auto) 87.7 % (37.0-80.0); Nucleated Red Blood Cells % 0.1 %; Platelet Count (auto) 129 10^3/uL (140-450); Red Cell Distribution Width 19.7 % (11.8-14.3); White Blood Cell 9.4 10^3/uL (4.4-10.8)
[2024-12-06 04:05] LABS: Alanine Aminotransferase 28 U/L (7-40); Albumin 3.2 g/dL (3.2-4.8); Alkaline Phosphatase 87 U/L (46-116); Anion Gap 17 (5-15); Aspartate Aminotransferase 31 U/L (<34); Chloride 105 mmol/L (98-107); Magnesium 2.3 mg/dL (1.6-2.6); Potassium 3.9 mmol/L (3.5-5.1); Sodium 140 mmol/L (136-145)
[2024-12-06 04:22] LABS: Bilirubin, Total 1.5 mg/dL (0.2-1.0); Blood Urea Nitrogen 52 mg/dL (9-23); Calcium 8.4 mg/dL (8.7-10.4); Carbon Dioxide 18 mmol/L (20-31); Glucose 193 mg/dL (74-106); Total Protein 5.5 g/dL (5.7-8.2)
[2024-12-06 05:23] LABS: Urine Bacteria None Seen /hpf (None Seen)
[2024-12-06 06:27] LABS: Urine Blood 3+ /uL (Negative); Urine Clarity Turbid (Clear); Urine Color Yellow (Yellow); Urine Hyaline Cast FEW /lpf (0 - 2); Urine Protein, UAD 1+ (Negative); Urine Specific Gravity 1.027 (1.001-1.035); Urine Squamous Epithelial Cell FEW /hpf (<5); Urine Urobilinogen Normal (Negative); Urine WBC 13 /HPF (0-3); Urine pH 5.5 (5.0-9.0)
--- NOTE | 2024-12-06 09:29 | DVH ---
EXAM: XY CHEST PORTABLE HISTORY: CHF COMPARISON: XY CHEST PORTABLE on DOS: 12/05/24, XY CHEST PORTABLE on DOS: 12/05/24 TECHNIQUE: Portable upright AP view of the chest was performed. FINDINGS: The film is rotated RPO. There are bilateral pleural effusions, stable on the left and improved on th e right since the previous day. There is improved interstitial prominence. No pneumothorax. The heart is enlarged. Right IJ central line is re-identified with its tip in the SVC -RA junction. IMPRESSION: Cardiomegaly with improved interstitial prominence, consistent with improved CHF. Additionally, ther e are bilateral pleural effusions which are improved on the right and stable on the left compared wit h chest x-ray performed 1 day earlier.
--- NOTE | 2024-12-06 09:53 | DVHPN2 ---
Consult Progress Note Date Seen: Dec 06, 2024 Objective vital signs Vital Sign Date Time Temp Pulse Resp B/P (MAP) Pulse Ox O2 Delivery O2 Flow Rate FiO2 12/06/24 09:30 125 12/06/24 08:08 14 96 12/06/24 08:00 Room Air 0.0 12/06/24 08:00 21 12/06/24 06:30 102/57 (72) 12/06/24 04:00 97.8 97.8 Total Intake and Output 12/05/24 12/05/24 12/06/24 14:59 22:59 06:59 Intake Total 433.33 ml 753.78 ml 540.58 ml Output Total 250 ml 150 ml Balance 433.33 ml 503.78 ml 390.58 ml medications Current Medications Medications Dose Ordered Sig/Juan Pablo Route Start Time Stop Time Status Last Admin Dose Admin Vancomycin HCl 0 ml @ 0 mls/hr UD IV 12/05/24 02:15 Cefepime HCl 50 ml @ 12.5 mls/hr Q12HR IV 12/05/24 10:00 12/05/24 22:00 12.5 MLS/HR Pantoprazole Sodium 40 mg DAILY IV 12/05/24 10:00 12/05/24 09:02 40 MG Ipratropium [place] 0.5 mg Q6HWA NEB 12/05/24 06:00 12/06/24 08:00 0.5 MG Atorvastatin Calcium 40 mg HS PO 12/05/24 22:00 12/05/24 22:01 40 MG Enteral Nutritional Formula 240 ml TIDWM PO 12/05/24 08:00 12/05/24 09:17 240 ML Norepinephrine Bitartrate 250 ml @ 3.75 mls/hr Q24H IV 12/05/24 10:45 12/06/24 04:03 26.25 MLS/HR Methylprednisolone Sodium Succinate 40 mg BID IV 12/05/24 22:00 12/05/24 22:01 40 MG Milrinone Lactate 100 ml @ 4.95 mls/hr [id number] IV 12/05/24 14:30 Hold 12/05/24 15:32 4.95 MLS/HR Digoxin 125 mcg DAILY IV 12/06/24 10:00 Examination: GENERAL:Abnormal, LUNGS:Abnormal (+crackles, improved), CVS:Abnormal (NSVT events, A-fib with RVR), NEURO:Normal laboratory and microbiology Laboratory Tests 12/06/24 02:40 Test 12/06/24 02:40 Range/Units Serum Glucose 193 H 74-106 mg/dL Problem List/Assessment/Plan Problem List/Assessment/Plan NSTEMI with cardiogenic shock (SCAI Shock Stage C) 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 Ramirez) * Transthoracic echocardiogram revealed LVEF 15% * Dilated CM, severe hypokinesis, anterior mitral leaflet tip is echogenic, severe MR Hematuria present for which therapeutic Lovenox was discontinued. Milrinone held last night given hemodynamic deterioration. Continues on antiarrhythmic therapy with amiodarone. Brother and patient have decided for DNR status and comfort measures only. Patient with end-stage cardiomyopathy. We will sign off at this time. Kindly call with any questions or concerns. Thank you for allowing us to participate in this patient's care. Critical care time: 30 min. This medical document was created using an electronic medical record system with voice recognition software and computerized dictation system. Although this document has been carefully reviewed, there might still be some phonetic and typographical errors. Occasional wrong-word or ``sound-alike substitutions may have occurred due to the inherent limitations of voice recognition software. These areas are purely typographical due to imperfections of the software programs and do not reflect any compromise in the patient's medical care. Please read the chart carefully and recognize, using context, where these substitutions have occurred. Plan discussed with: Patient, Other (brother, primary RN) Date of Service: Dec 06, 2024 Billing Provider: GEOVANNI MIRZA Cardiology Common Codes: [id number] CARE 30-74 MIN GEOVANNI MIRZA Dec 06, 2024 09:53
[2024-12-06] MEDS ORDERED: DIGOXIN (250MCG/ML) 2 ML AMPULE IV SCH (10:00)
--- NOTE | 2024-12-06 17:44 | DVHPNRES ---
Progress Note Date Seen: Dec 06, 2024 Resident Creating Document: TOBIAS FREIRE RESIDENT Has the PT tested + for MRSA If YES, has PT been informed?: No Medical Necessity Reason Pt with a Central, PICC or Fol: No Subjective Review of Systems Mr. Florentino, a 89-year-old gentleman with no known past medical history, poor medical follow up, was noted to be losing unintentional weight loss, patient has become confused and agitated, when the neighbors called brother who lives in [facility] visited him and found that he has altered level of consciousness, took the patient to directly to [facility] for further evaluation. Patient mentions he does not take any home medications and did not follow up with the primary care physician in longest time. He is living by himself for last 25 years, and overall in past 6 months has lost 30 lb of weight, does not have other means of support, limited family support, at this point not able to maintain ADLs by himself, used to move with cane and walker but lately feeling exhausted and overall weak and increasing loss of appetite. But the patient denies any aspiration, sick contact, pain, change in mentation or any fall. Patient was found to have new onset of atrial flutter and possible COPD exacerbation with wheezing and acute hypoxic respiratory failure, with AAO x4, post recovery in the ER from [facility]. Patient was admitted in telemetry floor, Past Medical History Patient denies any known previous medical history. Past Surgical History Patient denies any past significant surgical history, head to toe physical examination does not reveal any surgical scar. Family History: None, Other (Noncontributory, patient does not have a clear memory of family history relevant to this hospitalization.) Smoke: # pack years (Past 30 pack-year smoking history, quit in late 1960s, distant nicotine abuse history.) Occupation: Patient lives at home by him ALCOHOL: none Drugs: None Lives: Alone (Patient has a neighbor who keeps an eye on the patient. Close by family relatives are not very well connected. Closest family member brother lives in [facility].) Domestic Violence: Neg 12/05/2024: xray : Cardiomegaly with pulmonary edema and trace bilateral pleural effusions, Chronic dvt left SFV, popliteal vein, posterior tibial vein, BP on the floor 80/60, leg raise test with no improvement, HR elevated with atrial flutter, 250 cc were given, but due to the possible concern of mixed shock (septic and cardiogenic), patient was transferred to ICU, CVC was placed. Patient is on cefepime + vancomycin, apixaban 2.5 mg BID and amiodarone drip. ABG: mixed disorder: metabolic acidosis and respiratory alkalosis, po2 is normal. We will continue monitoring 12/06/2024: patient during the night had episodes of Vtach and hypotension, milrinone was held due to hypotension, in the morning the brother and the patient decided to DNR instead of chemical code and transitioning to comfort measures only, patient was transferred to med/surg, only morphine and ativan Objective vital signs Vital Sign Date Time Temp Pulse Resp B/P (MAP) Pulse Ox O2 Delivery O2 Flow Rate FiO2 12/06/24 17:01 97.9 57 18 88/59 (69) 84 97.9 12/06/24 12:14 Room Air* 0 21 Total Intake and Output 12/05/24 12/05/24 12/06/24 15:00 23:00 07:00 Intake Total 466.66 ml 764.56 ml 539.38 ml Output Total 250 ml 150 ml Balance 466.66 ml 514.56 ml 389.38 ml medications Current Medications Medications Dose Ordered Sig/Juan Pablo Route Start Time Stop Time Status Last Admin Dose Admin Enteral Nutritional Formula 240 ml TIDWM PO 12/05/24 08:00 12/05/24 09:17 240 ML Morphine Sulfate 2 mg Q2HPRN PRN IV 12/06/24 12:45 Lorazepam 1 mg Q6HP PRN IV 12/06/24 12:45 Examination General Appearance: Alert, Oriented X3, Cooperative, No acute distress HEENT: Extremely dry mucous membrane, low turgor, bilateral conjunctival pallor, Respiratory: Bilateral crackles, right more than left, slow air movement, 4-5 L nasal cannula oxygen, likely atelectasis. At baseline patient uses no oxygen. Cardiovascular: tachycardic Abdominal: Normal bowel sounds, Soft, No tenderness, No hepatospenomegaly, No masses, Other (No focal tender points noted) Extremities: No clubbing, No cyanosis, No edema, Normal pulses, No tenderness/swelling, Other (Extremely low muscle mass, malnutrition) Skin: (At back patient has some scratches on the left scapular region. Lower sacral region mild blanching redness, no skin tear noted. No ulcer noted. Neuro: Normal speech, Strength at 5/5 X4 ext (Upper and lower extremity equal 4/5 strength no focal neurological deficit), Normal tone, Sensation intact, Cranial nerves 3-12 NL, Reflexes 2+ (patient is AAO x4 with good recall of recent and past major events. Patient could depict the entire narrative coming from home to [place] and [facility] without memory lapses) Psych/Mental Status: Mental status NL, Mood NL laboratory and microbiology Laboratory Tests 12/06/24 02:40 Test 12/06/24 02:40 Range/Units Serum Glucose 193 H 74-106 mg/dL Microbiology Date/Time Source Procedure Growth Status 12/05/24 13:14 Blood Blood Culture - Preliminary NO GROWTH AFTER 24 HOURS OF INCUBATION. Resulted 12/05/24 13:13 Voided Urine Urine Culture - Preliminary Resulted 12/05/24 10:45 Nose MRSA Screen - Final Complete Problem List/Assessment/Plan Problem List/Assessment/Plan Neurological #Acute metabolic encephalopathy due to sepsis/cardiogenic shock resolving No need of ETT Patient is A04X Cardiovascular #Early Cardiogenic/ septic shock #Acute systolic heart failure #NSTEMI? 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 Case discussed with Dr Diego the brother and the patient decided to DNR instead of chemical code and transitioning to comfort measures only, patient was transferred to med/surg, only morphine and ativan please susan ibarra Case discussed extensively with the brother Plan discussed with: Patient, Other (rn) My Orders My Orders Orders - TOBIAS FREIRE Procedure Category Date Status Time Transfer Orders XFER 12/06/24 Transmitted 09:54 Code Status CODE 12/06/24 Transmitted 12:45 Morphine Sulfate PHA 12/06/24 In Process Injection 12:45 Lorazepam 2mg/Ml Inj PHA 12/06/24 In Process (Ativan Inj) 12:45 Date of Service: Dec 06, 2024 Billing Provider: GRISELDA DIEGO MD Common Visit Codes: [id number] INP/OBS CARE(HIGH) TOBIAS FREIRE RESIDENT Dec 06, 2024 17:43 GRISELDA DIEGO MD Dec 11, 2024 21:44
[2024-12-06] MEDS: LORazepam 2MG/ML-1ML VIAL IV PRN (18:05)
[2024-12-06] MEDS: MORPHINE SULFATE INJ 2 MG/ml SYRG IV PRN (18:06)
[2024-12-07] VITALS (7 sets, daily range): BP systolic 84–103; BP diastolic 51–67; PULSE 59–129; RESP 14–20; TEMP 96.7–98.6; O2SAT 84–99
[2024-12-07 06:31] LABS: Basophils # (auto) 0 10 ^3/uL (0-0.2); Basophils % (auto) 0.1 % (0.0-2.0); Eosinophils # (auto) 0 10 ^3/uL (0-0.8); Eosinophils % (auto) 0.3 % (0.0-7.0); Hematocrit 40.6 % (41.0-53.0); Hemoglobin 13.8 g/dL (13.5-17.5); Lymphocytes # (auto) 0.4 10 ^3/uL (0.4-5.4); Lymphocytes % (auto) 6.4 % (10.0-50.0); Mean Corpuscular Hemoglobin 30.7 pg (28.0-32.0); Mean Corpuscular Volume 90.3 fL (80.0-100.0); Monocytes # (auto) 0.5 10 ^3/uL (0-1.3); Monocytes % (auto) 7.9 % (0.0-12.0); Neutrophils % (auto) 85.3 % (37.0-80.0); Nucleated Red Blood Cells % 0.3 %; Platelet Count (auto) 91 10^3/uL (140-450); Red Blood Cells 4.49 10^6/uL (4.5-5.90); Red Cell Distribution Width 19.2 % (11.8-14.3); White Blood Cell 5.9 10^3/uL (4.4-10.8)
--- NOTE | 2024-12-07 15:25 | DVHPNRES ---
Progress Note Date Seen: Dec 07, 2024 Resident Creating Document: TOBISA FREIRE RESIDENT Has the PT tested + for MRSA If YES, has PT been informed?: No Medical Necessity Reason Pt with a Central, PICC or Fol: No Subjective Review of Systems Mr. Florentino, a 89-year-old gentleman with no known past medical history, poor medical follow up, was noted to be losing unintentional weight loss, patient has become confused and agitated, when the neighbors called brother who lives in [facility] visited him and found that he has altered level of consciousness, took the patient to directly to [facility] for further evaluation. Patient mentions he does not take any home medications and did not follow up with the primary care physician in longest time. He is living by himself for last 25 years, and overall in past 6 months has lost 30 lb of weight, does not have other means of support, limited family support, at this point not able to maintain ADLs by himself, used to move with cane and walker but lately feeling exhausted and overall weak and increasing loss of appetite. But the patient denies any aspiration, sick contact, pain, change in mentation or any fall. Patient was found to have new onset of atrial flutter and possible COPD exacerbation with wheezing and acute hypoxic respiratory failure, with AAO x4, post recovery in the ER from [facility] transferred to the [facility] for further care. Patient was admitted in telemetry floor, Past Medical History Patient denies any known previous medical history. Past Surgical History Patient denies any past significant surgical history, head to toe physical examination does not reveal any surgical scar. Family History: None, Other (Noncontributory, patient does not have a clear memory of family history relevant to this hospitalization.) Smoke: # pack years (Past 30 pack-year smoking history, quit in late 1960s, distant nicotine abuse history.) Occupation: Patient lives at home by him ALCOHOL: none Drugs: None Lives: Alone (Patient has a neighbor who keeps an eye on the patient. Close by family relatives are not very well connected. Closest family member brother lives in [facility].) Domestic Violence: Neg 12/05/2024: xray : Cardiomegaly with pulmonary edema and trace bilateral pleural effusions, Chronic dvt left SFV, popliteal vein, posterior tibial vein, BP on the floor 80/60, leg raise test with no improvement, HR elevated with atrial flutter, 250 cc were given, but due to the possible concern of mixed shock (septic and cardiogenic), patient was transferred to ICU, CVC was placed. Patient is on cefepime + vancomycin, apixaban 2.5 mg BID and amiodarone drip. ABG: mixed disorder: metabolic acidosis and respiratory alkalosis, po2 is normal. We will continue monitoring 12/06/2024: patient during the night had episodes of Vtach and hypotension, milrinone was held due to hypotension, in the morning the brother and the patient decided to DNR instead of chemical code and transitioning to comfort measures only, patient was transferred to med/surg, only morphine and ativan 12/07/2024:Comfort measures only, SS for hospice in a facility Objective vital signs Vital Sign Date Time Temp Pulse Resp B/P (MAP) Pulse Ox O2 Delivery O2 Flow Rate FiO2 12/07/24 13:00 96.7 78 17 90/51 (64) 98 96.7 12/07/24 08:00 Nasal Cannula* 2 28 Total Intake and Output 12/06/24 12/06/24 12/07/24 15:00 23:00 07:00 Intake Total 200 ml 100 ml 100 ml Output Total 700 ml 875 ml Balance 200 ml -600 ml -775 ml medications Current Medications Medications Dose Ordered Sig/Juan Pablo Route Start Time Stop Time Status Last Admin Dose Admin Enteral Nutritional Formula 240 ml TIDWM PO 12/05/24 08:00 12/07/24 08:00 240 ML Morphine Sulfate 2 mg Q2HPRN PRN IV 12/06/24 12:45 12/06/24 18:06 2 MG Lorazepam 1 mg Q6HP PRN IV 12/06/24 12:45 12/06/24 18:05 1 MG Examination General Appearance: Alert, Oriented X3, Cooperative, No acute distress HEENT: Extremely dry mucous membrane, low turgor, bilateral conjunctival pallor, Respiratory: Bilateral crackles, right more than left, slow air movement, 4-5 L nasal cannula oxygen, likely atelectasis. At baseline patient uses no oxygen. Cardiovascular: tachycardic Abdominal: Normal bowel sounds, Soft, No tenderness, No hepatospenomegaly, No masses, Other (No focal tender points noted) Extremities: No clubbing, No cyanosis, No edema, Normal pulses, No tenderness/swelling, Other (Extremely low muscle mass, malnutrition) Skin: (At back patient has some scratches on the left scapular region. Lower sacral region mild blanching redness, no skin tear noted. No ulcer noted. Neuro: Normal speech, Strength at 5/5 X4 ext (Upper and lower extremity equal 4/5 strength no focal neurological deficit), Normal tone, Sensation intact, Cranial nerves 3-12 NL, Reflexes 2+ (patient is AAO x4 with good recall of recent and past major events. Patient could depict the entire narrative coming from home to [place] and to the H without memory lapses) Psych/Mental Status: Mental status NL, Mood NL laboratory and microbiology Laboratory Tests 12/07/24 04:54 12/06/24 02:40 Test 12/06/24 02:40 Range/Units Serum Glucose 193 H 74-106 mg/dL Microbiology Date/Time Source Procedure Growth Status 12/05/24 13:14 Blood Blood Culture - Preliminary NO GROWTH AFTER 48 HOURS OF INCUBATION. Resulted 12/05/24 13:13 Voided Urine Urine Culture - Final Complete 12/05/24 10:45 Nose MRSA Screen - Final Complete Problem List/Assessment/Plan Problem List/Assessment/Plan Neurological #Acute metabolic encephalopathy due to sepsis/cardiogenic shock resolving No need of ETT Patient is A04X Cardiovascular #Early Cardiogenic/ septic shock #Acute systolic heart failure #NSTEMI? 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 Case discussed with Dr Diego the brother and the patient decided to DNR instead of chemical code and transitioning to comfort measures only, patient was transferred to med/surg, only morphine and ativan SS for hospice in a facility Case discussed extensively with the brother Plan discussed with: Patient, Other (rn) My Orders My Orders Orders - TOBIAS FREIRE RESIDENT Procedure Category Date Status Time D/C Rayo MARI 12/06/24 In Process 17:31 * Lead Java Programmer CONS 12/07/24 Transmitted Consult Date of Service: Dec 07, 2024 Billing Provider: GRISELDA DIEGO MD Common Visit Codes: [id number] INP/OBS CARE(HIGH) TOBIAS FREIRE RESIDENT Dec 07, 2024 15:25 GRISELDA DIEGO MD Dec 11, 2024 22:00
[2024-12-08 01:00] VITALS: BP 88/64; PULSE 63; RESP 16; TEMP 97.4; O2SAT 98
[2024-12-08 05:00] VITALS: BP 92/61; PULSE 76; RESP 17; TEMP 97.1; O2SAT 100
[2024-12-08 08:00] VITALS: PULSE 84; RESP 17; O2SAT 93
[2024-12-08 09:00] VITALS: BP 101/48; PULSE 84; RESP 17; TEMP 97.9; O2SAT 93
[2024-12-08 12:35] VITALS: BP 114/54; PULSE 121; RESP 17; TEMP 36.6; O2SAT 93
[2024-12-08 13:00] VITALS: BP 92/58; PULSE 60; RESP 17; TEMP 98.1; O2SAT 95
--- NOTE | 2024-12-08 14:29 | DVHDSRES ---
Discharge Summary Date of Admission Resident Creating Document: TOBIAS FREIRE RESIDENT Dec 05, 2024 at 01:22 Date of Discharge: Dec 08, 2024 Admitting Diagnosis #Acute metabolic encephalopathy due to sepsis/cardiogenic shock Labs/Diagnostic Data: Laboratory Results Test 12/07/24 04:54 12/06/24 02:40 12/05/24 13:13 12/05/24 13:08 White Blood Count 5.9 10^3/uL (4.4-10.8) Red Blood Count 4.49 10^6/uL (4.5-5.90) Hemoglobin 13.8 g/dL (13.5-17.5) Hematocrit 40.6 % (41.0-53.0) Mean Corpuscular Volume 90.3 fL (80.0-100.0) Mean Corpuscular Hemoglobin 30.7 pg (28.0-32.0) Mean Corpuscular Hemoglobin Concent 34.0 g/dL (32.0-36.0) Red Cell Distribution Width 19.2 % (11.8-14.3) Platelet Count 91 10^3/uL (140-450) Mean Platelet Volume 9.3 fL (6.9-10.8) Neutrophils (%) (Auto) 85.3 % (37.0-80.0) Lymphocytes (%) (Auto) 6.4 % (10.0-50.0) Monocytes (%) (Auto) 7.9 % (0.0-12.0) Eosinophils (%) (Auto) 0.3 % (0.0-7.0) Basophils (%) (Auto) 0.1 % (0.0-2.0) Neutrophils # (Auto) 5.0 10 ^3/uL (1.6-8.6) Lymphocytes # (Auto) 0.4 10 ^3/uL (0.4-5.4) Monocytes # (Auto) 0.5 10 ^3/uL (0-1.3) Eosinophils # (Auto) 0 10 ^3/uL (0-0.8) Basophils # (Auto) 0 10 ^3/uL (0-0.2) Nucleated Red Blood Cells 0.3 % Creatinine 2.04 mg/dL (0.700-1.30) Glomerular Filtration Rate Calc 31 mL/min (>90) B-Type Natriuretic Peptide 1153.67 pg/mL (0-100) Random Vancomycin Level 10.6 ug/mL (5-10) Sodium Level 140 mmol/L (136-145) Potassium Level 3.9 mmol/L (3.5-5.1) Chloride Level 105 mmol/L (98-107) Carbon Dioxide Level 18 mmol/L (20-31) Anion Gap 17 (5-15) Blood Urea Nitrogen 52 mg/dL (9-23) BUN/Creatinine Ratio 25.0 (10.0-20.0) Serum Glucose 193 mg/dL (74-106) Calcium Level 8.4 mg/dL (8.7-10.4) Magnesium Level 2.3 mg/dL (1.6-2.6) Total Bilirubin 1.5 mg/dL (0.2-1.0) Aspartate Amino Transferase (AST) 31 U/L (<34) Alanine Aminotransferase (ALT) 28 U/L (7-40) Alkaline Phosphatase 87 U/L (46-116) Total Protein 5.5 g/dL (5.7-8.2) Albumin 3.2 g/dL (3.2-4.8) Urine Color Yellow (Yellow) Urine Clarity Turbid (Clear) Urine pH 5.5 (5.0-9.0) Urine Specific [place] 1.027 (1.001-1.035) Urine Protein 1+ (Negative) Urine Ketones 1+ (Negative) Urine Blood 3+ /uL (Negative) Urine Nitrite Negative (Negative) Urine Bilirubin Negative (Negative) Urine Urobilinogen Normal mg/dL (Negative) Urine Leukocyte Esterase Negative /uL (Negative) Urine RBC 108 /hpf (0 - 3) Urine Microscopic WBC 13 /HPF (0-3) Urine Squamous Epithelial Cells Few /hpf (<5) Urine Bacteria None seen /hpf (None Seen) Urine Hyaline Casts Few /lpf (0 - 2) Urine Glucose Normal mg/dL (Normal) Differential Total Cells Counted 100.0 (100) Neutrophils % (Manual) 92 (37.0-80.0) Band Neutrophils % (Manual) 2 Lymphocytes % (Manual) 4 (10.0-50.0) Monocytes % (Manual) 2 (0-12) Eosinophils % (Manual) 0 (0-7) Basophils % (Manual) 0 (0.0-2.0) Metamyelocytes % (manual) 0 Myelocytes % (Manual) 0 Promyelocytes % (Manual) 0 Blast Cells % (Manual) 0 Reactive Lymphocytes 0 Platelet Estimate Decreased Anisocytosis (manual) Slight Ovalocytes Few [place] Cells Moderate Prothrombin Time 14.0 sec (9.3-11.8) Prothrombin Time INR 1.36 (0.9-1.15) Activated Partial Thromboplast Time 32.8 SEC (24.5-34.5) Test 12/05/24 11:00 12/05/24 08:24 12/05/24 05:44 12/05/24 02:38 Blood Gas Specimen Type Arterial Blood Gas Sample Site Left radial Blood Gas Patient Temperature 37.0 Arterial Blood Date Drawn Arterial Blood pH 7.405 (7.350-7.450) Arterial Blood Partial Pressure CO2 18.6 mmHg (35.0-48.0) Arterial Blood Partial Pressure O2 135.9 mmHg (83.0-108.0) Arterial Blood HCO3 11.4 mmol/L (21.0-28.0) Arterial Blood Oxygen Saturation 98.5 % (94.0-98.0) Arterial Blood Base Excess -10.1 mmol/L (-2.0-3.0) Arterial Blood Oxyhemoglobin 97.7 % (94.0-98.0) Arterial Blood Carboxyhemoglobin 0.3 % (0.5-1.5) Arterial Blood Methemoglobin 0.5 % (0.0-1.5) Ramos Test Yes Blood Gas Total Hemoglobin 16.80 g/dL (13.5-17.5) Blood Gas Liter Flow 5.00 Blood Gas Modality Nasal cannula FiO2 % 40.0 Blood Gas Critical Value Read Back Yes Blood Gas Notified Whom ema Gallego Blood Gas Notified Time [id number] Blood Gas Notified By Swimmer mary gomes Lactic Acid Level 3.3 mmol/L (0.4-2.0) Triglycerides Level 166 mg/dL (< 150) Cholesterol Level 267 mg/dL (< 200) LDL Cholesterol 175 mg/dL (< 100) HDL Cholesterol 62 mg/dL (40-59) Cortisol AM Sample 67.17 ug/dL (5.27-22.45) Troponin I High Sensitivity 69 ng/L (</=54) D-Dimer, Quantitative 4.87 mg/L FEU (0.0-0.49) Hemoglobin A1c 5.9 % A1C (<5.7) Lipase 39 U/L (12-53) Vitamin B12 Level 1562 pg/mL (211-911) Thyroid Stimulating Hormone (TSH) 8.35 uIU/mL (0.55-4.78) Free Thyroxine (T4) Calculated 1.90 ng/dL (0.89-1.76) Free Triiodothyronine (T3) pg/mL 2.14 pg/mL (2.3-4.2) Other Laboratory Tests 12/07/24 04:54 12/06/24 02:40 Brief Hx & Hospital Course: Mr. Florentino, a 89-year-old gentleman with no known past medical history, poor medical follow up, was noted to be losing unintentional weight loss, patient has become confused and agitated, when the neighbors called brother who lives in [facility] visited him and found that he has altered level of consciousness, took the patient to directly to [facility] for further evaluation. Patient mentions he does not take any home medications and did not follow up with the primary care physician in longest time. He is living by himself for last 25 years, and overall in past 6 months has lost 30 lb of weight, does not have other means of support, limited family support, at this point not able to maintain ADLs by himself, used to move with cane and walker but lately feeling exhausted and overall weak and increasing loss of appetite. But the patient denies any aspiration, sick contact, pain, change in mentation or any fall. Patient was found to have new onset of atrial flutter and possible COPD exacerbation with wheezing and acute hypoxic respiratory failure, with AAO x4, post recovery in the ER from [facility] transferred to the [facility] for further care. Patient was admitted in telemetry floor, Past Medical History Patient denies any known previous medical history. Past Surgical History Patient denies any past significant surgical history, head to toe physical examination does not reveal any surgical scar. Family History: None, Other (Noncontributory, patient does not have a clear memory of family history relevant to this hospitalization.) Smoke: # pack years (Past 30 pack-year smoking history, quit in late 1960s, distant nicotine abuse history.) Occupation: Patient lives at home by him ALCOHOL: none Drugs: None Lives: Alone (Patient has a neighbor who keeps an eye on the patient. Close by family relatives are not very well connected. Closest family member brother lives in [facility].) Domestic Violence: Neg 12/05/2024: xray : Cardiomegaly with pulmonary edema and trace bilateral pleural effusions, Chronic dvt left SFV, popliteal vein, posterior tibial vein, BP on the floor 80/60, leg raise test with no improvement, HR elevated with atrial flutter, 250 cc were given, but due to the possible concern of mixed shock (septic and cardiogenic), patient was transferred to ICU, CVC was placed. Patient is on cefepime + vancomycin, apixaban 2.5 mg BID and amiodarone drip. ABG: mixed disorder: metabolic acidosis and respiratory alkalosis, po2 is normal. We will continue monitoring 12/06/2024: patient during the night had episodes of Vtach and hypotension, milrinone was held due to hypotension, in the morning the brother and the patient decided to DNR instead of chemical code and transitioning to comfort measures only, patient was transferred to med/surg, only morphine and ativan 12/07/2024:Comfort measures only, SS for hospice in a facility 12/08/2024: Patient is going to [facility] hospice, family agrees on transfer. General Appearance: Alert, Oriented X3, Cooperative, No acute distress HEENT: Extremely dry mucous membrane, low turgor, bilateral conjunctival pallor, Respiratory: Bilateral crackles, right more than left, slow air movement, 4-5 L nasal cannula oxygen, likely atelectasis. At baseline patient uses no oxygen. Cardiovascular: tachycardic Abdominal: Normal bowel sounds, Soft, No tenderness, No hepatospenomegaly, No masses, Other (No focal tender points noted) Extremities: No clubbing, No cyanosis, No edema, Normal pulses, No tenderness/swelling, Other (Extremely low muscle mass, malnutrition) Skin: (At back patient has some scratches on the left scapular region. Lower sacral region mild blanching redness, no skin tear noted. No ulcer noted. Neuro: Normal speech, Strength at 5/5 X4 ext (Upper and lower extremity equal 4/5 strength no focal neurological deficit), Normal tone, Sensation intact, Cranial nerves 3-12 NL, Reflexes 2+ (patient is AAO x4 with good recall of recent and past major events. Patient could depict the entire narrative coming from home to [place] and to the [facility] without memory lapses) Psych/Mental Status: Mental status NL, Mood N Case discussed with Dr Diego Full code Consults/Reason for consult cardiology due to cardiac shock Operations or Procedures INDICATION: Rule out hepatobiliary pathology TECHNIQUE: Multiple real-time sonographic images were obtained of the right upper quadrant. COMPARISON: None FINDINGS: The liver demonstrates increased echotexture without focal mass lesions. The liver measures 12.5 cm. There is no intrahepatic or extrahepatic ductal dilatation. The common duct measures 0.3 cm. Gallbladder sludge is present. The gallbladder wall measures 0.3 cm and is within normal limits. Trace pericholecystic fluid. Trace perihepatic ascites. The right kidney measures 8.0 cm. The right kidney is normal in contour, size, and shape. The echogenicity is normal. There is no hydronephrosis. Right upper pole cyst measures 4.2 cm. The pancreas is not well visualized due to overlying bowel gas. Small to moderate right pleural effusion. IMPRESSION: Small to moderate right pleural effusion. Trace perihepatic and trace pericholecystic fluid. Gallbladder sludge is present. Mild increased echogenicity of the liver may represent hepatic steatosis. INDICATION: Rule out obstruction. Ureter, bladder and b/l kidney TECHNIQUE: Multiple real-time sonographic images of the kidneys and bladder were obtained. COMPARISON: None FINDINGS: The right kidney measures 8 cm in length, which is normal in size. There is normal echogeni[place] of the right kidney. No hydronephrosis. The left kidney measures 9 cm in length, which is normal in size. There is normal echogenicity of the left kidney. No hydronephrosis. No large intraluminal masses are seen in the bladder. 5 cm right renal cyst. IMPRESSION: 1. Normal sonographic appearance of the kidneys. No hydronephrosis. 2. Small bilateral pleural effusions. EXAM: Two-dimensional and M-mode echocardiogram with Doppler and color Doppler. Blood Pressure: 74/42 mmHg INDICATION R/O structural heart disease RISK FACTORS Height: 6'1", Weight: 145 DIMENSIONS LVDd 6.1 (3.8-5.7cm) LA (2D) 5.2 (1.9-4.0cm) Aortic Root 3.5 (2.0- 3.7cm) LVDs 5.7 (2.5-4.0cm) LA (MM) (1.9-4.0cm) Aortic Cusp Exc 1.6 (1.5- 2.0cm) EF (%) 15.0 (55-70%) Rt. Atrium 5.0 (1.9-4.0cm) Asc. Aorta cm IVSd 0.8 (0.7-1.1cm) RV (D) 4.6 (1.8-2.4cm) PWd 1.0 (0.7-1.1cm) Mitral Valve Mitral Mitral Stenosis E wave 1.12m/s MV Mean GR. mmHg E/A ratio 0.0 2D MVA cm2 Aortic Valve Aortic Valve Aortic Stenosis V1 0.58m/s AO Mean GR. 2mmHg V2 0.90m/s AO Peak GR. 3mmHg LVOT Diameter 2.3 (1.8-2.4cm) Doppler BHAVANI 2.68cm2 2D BHAVANI 2.84cm2 Pulmonic Valve V2 0.59m/s Tricuspid Valve TR Velocity 2.71m/s RVSP 45mmHg Conclusion SIGNIFICANTLY DILATED LV SEVERE HYPOKINESIS OF LV DILATED ALL CARDIAC CHAMBERS LV EF IS ONLY 15% ANTERIOR MITRAL LEAFLET TIP IS ECHOGENIC CORRELATE CLINICALLY IF ANY SUSPICIOUS OF PREVIOUS ENDOCARDITIS SEVERE MITRAL REGURGITATION SIGNIFICANTLY DILATED LA AND RV AND RA NORMAL TV,PV AND AORTIC VALVE MODERATE DEGREE PULMONARY HYPERTENSION Condition at Discharge: Poor Final Diagnosis/Problems List #end stage heart failure #Acute metabolic encephalopathy due to sepsis/cardiogenic shock #Cardiogenic/ septic shock #Acute systolic heart failure #NSTEMI type 1 vs type 2 #Atrial flutter with RVR #Acute respiratory failure #COPD exacerbation #Possible pneumonia gram +/ gram - #Failure to thrive #Protein malnutrition #STEPHANE due to VMN on possible CKD #Possible complicated UTI #hematuria #Chronic DVT #Thrombocytopenia #Hyperbilirubinemia #Fatty liver #Euthyroid sick syndrome Discharge Disposition: Hospice- Medical Facility Discharge Instruct/Medications Diet: See Comment Diet comment: as tolerated Activity: Bed rest Follow Up/Referral: per hospice Medications: per hospice Discharge Statement: "Patient was advised to return to the ER or call 911 if any headaches, dizziness, shortness of breath, chest pain, abdominal pain, bleeding, fevers, or worsening of medical condition. Patient was counseled about treatment plan, medications, possible side effects, patientverbalized understanding. All questions were answered to the best of my ability. This discharge took greater then 30 minutes in planning, reviewing documentation, counseling the patient, and discussing with other team members." ASSESSMENT ASSESSMENT Assessment end stage heart failure Date of Service: Dec 08, 2024 Billing Provider: GRISELDA DIEGO MD Common Visit Codes: 74716-BHM/OBS DISCH DAY >30min TOBIAS FREIRE RESIDENT Dec 08, 2024 14:29 GRISELDA DIEGO MD Dec 11, 2024 22:13
== END 2024-12-08 14:00 | disposition hospice, inpatient (51) | DRG 871 ==
LOC: TELE-WESTW 12-05 01:22 → ICU WEST 12-05 10:44 → CENTRAL 12-06 11:07
PROVIDERS: ADMIT Student in an Organized Health Care Education/Training Program; ATTEND Specialist
DX: A41.9 Sepsis, unspecified organism (principal); G93.41 Metabolic encephalopathy; I50.23 Acute on chronic systolic (congestive) heart failure; J96.01 Acute respiratory failure with hypoxia; R57.0 Cardiogenic shock; N17.0 Acute kidney failure with tubular necrosis; R65.21 Severe sepsis with septic shock; J15.69 Pneumonia due to other Gram-negative bacteria; J15.9 Unspecified bacterial pneumonia; I21.A1 Myocardial infarction type 2; Z68.1 Body mass index [BMI] 19.9 or less, adult; I47.19 Other supraventricular tachycardia; I48.92 Unspecified atrial flutter; I82.402 Acute embolism and thrombosis of unspecified deep veins of left lower extremity; E46 Unspecified protein-calorie malnutrition; N39.0 Urinary tract infection, site not specified; I82.509 Chronic embolism and thrombosis of unspecified deep veins of unspecified lower extremity; J44.1 Chronic obstructive pulmonary disease with (acute) exacerbation; D69.6 Thrombocytopenia, unspecified; E07.9 Disorder of thyroid, unspecified; E78.5 Hyperlipidemia, unspecified; I48.0 Paroxysmal atrial fibrillation; R73.03 Prediabetes; R62.51 Failure to thrive (child); E07.81 Sick-euthyroid syndrome; K76.0 Fatty (change of) liver, not elsewhere classified; E80.6 Other disorders of bilirubin metabolism; R31.9 Hematuria, unspecified; Z79.899 Other long term (current) drug therapy
CPT/HCPCS: 36415; 36600; 71045; 76705; 76775; 80053; 80061; 80202; 81001; 82533; 82565; 82607; 82805; 83036; 83605; 83690; 83735; 83880; 84439; 84443; 84481; 84484; 85007; 85025; 85027; 85379; 85610; 85730; 87040; 87081; 87086; 92610; 93005; 93306; 93970; 94640; 97116; 97163; 97530; G0378; J2470